=== PATIENT | male | born 1980 | race Caucasian/White ===

== ENCOUNTER 2025-10-22 06:32 | Day surgery (SDC) | payer OTHER, SELFPAY | END 2025-10-22 10:58 | disposition home or self-care (01) | LOC: GI 06:32 | PROVIDERS: ATTENDING PHYSICIAN Internal Medicine Gastroenterology | DX: Z12.11 Encounter for screening for malignant neoplasm of colon (principal); K64.8 Other hemorrhoids | CPT/HCPCS: G0121 ==